=== PATIENT | female | born 1980 | race Caucasian/White ===

== ENCOUNTER 2023-01-05 15:04 | Emergency (ER) | payer MEDICAID ==
[~2023-01-05] VITALS: Ht 172.7 cm; Wt 123.4 kg
[2023-01-05 15:05] VITALS: BP 176/97
[2023-01-05 15:46] LABS: URINE HCG NEGATIVE (NEG)
[2023-01-05 15:47] LABS: CLARITY,URINE SLIGHTLY CLOUDY (Clear); COLOR,URINE YELLOW (Yellow); GLUCOSE, URINE NEGATIVE (Neg); KETONES,URINE NEGATIVE (Neg); LEUKOCYTE ESTERASE ,URINE TRACE (Neg); NITRITES, URINE NEGATIVE (Neg); OCCULT BLOOD,URINE LARGE (Neg); PROTEIN,URINE NEGATIVE (Neg); UROBILINOGEN,URINE 0.2 E.U/dL (0.2-1.0)
[2023-01-05 15:57] LABS: UA COLLECTION TYPE CLN CATCH MIDSTREAM
[2023-01-05 15:59] LABS: BACTERIA,URINE 2+ /HPF (Neg); MUCUS STRANDS FEW /LPF (Neg); SQUAMOUS EPITHELIAL CELL,UR MODERATE /LPF (FEW)
[2023-01-05 16:07] LABS: BASOPHILS # (AUTO) 0.1 X10'3 (0-0.2); BASOPHILS % (AUTO) 0.8 % (0-1); EOSINOPHILS # (AUTO) 0.2 X10'3 (0-0.9); EOSINOPHILS % (AUTO) 1.9 % (0-6); HEMATOCRIT 42.1 % (35.0-45.0); HEMOGLOBIN 14.6 g/dl (12.0-16.0); LYMPHOCYTES # (AUTO) 3.1 X10'3 (1.1-4.8); LYMPHOCYTES % (AUTO) 24.3 % (21-51); MEAN CORPUSCULAR HEMOGLOBIN 34.8 PG (27.0-31.0); MEAN CORPUSCULAR HGB CONC 34.8 g/dL (33.0-36.5); MEAN PLATELET VOLUME 7.6 FL (7.4-10.4); MONOCYTES % (AUTO) 7.7 % (2-12); NEUTROPHILS # (AUTO) 8.3 X10'3 (1.8-7.7); NEUTROPHILS % (AUTO) 65.3 % (42-75); PLATELET COUNT 372 X10'3 (140-440); RED BLOOD COUNT 4.21 X10'6 (4.20-5.60); RED CELL DISTRIBUTION WIDTH 12.5 % (11.5-14.5); WHITE BLOOD COUNT 12.6 X10'3 (4.5-11.0)
[2023-01-05 16:17] LABS: ALANINE AMINOTRANSFERASE 22 U/L (12-78); ALBUMIN 3.6 G/DL (3.4-5.0); ALBUMIN/GLOBULIN RATIO 0.9 (1.1-1.5); ALKALINE PHOSPHATASE 85 IU/L (46-116); ANION GAP 7 (8-16); ASPARTATE AMINO TRANSFERASE 15 U/L (10-37); BILIRUBIN,TOTAL 0.3 MG/DL (0.1-1.0); BLOOD UREA NITROGEN 8 MG/DL (7-18); BUN/CREATININE RATIO 8.5 (10.0-20.0); CALCIUM 8.9 MG/DL (8.5-10.1); CHLORIDE 104 MMOL/L (99-107); CREATININE 0.94 MG/DL (0.40-0.90); GLUCOSE 109 MG/DL (70-104); LIPASE 107 U/L (73-393); POTASSIUM 3.4 MMOL/L (3.5-5.1); SODIUM 137 MMOL/L (135-145); TOTAL CARBON DIOXIDE 25.6 MMOL/L (24-32); TOTAL PROTEIN 7.6 G/DL (6.4-8.2); eGFR 66 ML/MIN
[2023-01-05 16:40] LABS: MAGNESIUM 2.2 MG/DL (1.5-2.4)
== END 2023-01-05 18:09 | disposition home or self-care (01) ==
LOC: ER 15:05
DX: K46.9 Unspecified abdominal hernia without obstruction or gangrene (principal); Z88.6 Allergy status to analgesic agent; Z88.5 Allergy status to narcotic agent; Z79.899 Other long term (current) drug therapy
CPT/HCPCS: 36415; 74176; 80053; 81001; 81025; 83690; 83735; 85025; 87088; 99284

== ENCOUNTER 2023-02-25 11:05 | Emergency (ER) | payer MEDICAID ==
[~2023-02-25] VITALS: Ht 170.2 cm; Wt 135.2 kg
[2023-02-25 12:22] LABS: BASOPHILS # (AUTO) 0.1 X10'3 (0-0.2); BASOPHILS % (AUTO) 0.7 % (0-1); EOSINOPHILS # (AUTO) 0.8 X10'3 (0-0.9); EOSINOPHILS % (AUTO) 7.3 % (0-6); HEMATOCRIT 42.7 % (35.0-45.0); HEMOGLOBIN 14.5 g/dl (12.0-16.0); LYMPHOCYTES % (AUTO) 27.5 % (21-51); MEAN CORPUSCULAR HEMOGLOBIN 33.7 PG (27.0-31.0); MEAN CORPUSCULAR VOLUME 99.1 FL (78-98); MEAN PLATELET VOLUME 7.3 FL (7.4-10.4); MONOCYTES % (AUTO) 8.8 % (2-12); NEUTROPHILS # (AUTO) 6.1 X10'3 (1.8-7.7); NEUTROPHILS % (AUTO) 55.7 % (42-75); PLATELET COUNT 460 X10'3 (140-440); RED BLOOD COUNT 4.31 X10'6 (4.20-5.60); RED CELL DISTRIBUTION WIDTH 12.7 % (11.5-14.5)
[2023-02-25 12:28] LABS: CLARITY,URINE CLOUDY (Clear); COLOR,URINE YELLOW (Yellow); GLUCOSE, URINE NEGATIVE (Neg); KETONES,URINE NEGATIVE (Neg); LEUKOCYTE ESTERASE ,URINE NEGATIVE (Neg); NITRITES, URINE NEGATIVE (Neg); OCCULT BLOOD,URINE NEGATIVE (Neg); PH,URINE 5.5 (4.8-8.0); PROTEIN,URINE NEGATIVE (Neg); UROBILINOGEN,URINE 0.2 E.U/dL (0.2-1.0)
[2023-02-25 12:33] LABS: APTT 27 SECONDS (22-32)
[2023-02-25 12:34] LABS: URINE HCG NEGATIVE (NEG)
[2023-02-25 12:37] LABS: ALANINE AMINOTRANSFERASE 24 U/L (12-78); ALBUMIN 3.6 G/DL (3.4-5.0); ALBUMIN/GLOBULIN RATIO 0.9 (1.1-1.5); ALKALINE PHOSPHATASE 81 IU/L (46-116); ANION GAP 12 (8-16); ASPARTATE AMINO TRANSFERASE 15 U/L (10-37); BILIRUBIN,TOTAL 0.4 MG/DL (0.1-1.0); BLOOD UREA NITROGEN 9 MG/DL (7-18); BUN/CREATININE RATIO 10.6 (10.0-20.0); CALCIUM 9.4 MG/DL (8.5-10.1); CHLORIDE 103 MMOL/L (99-107); CREATININE 0.85 MG/DL (0.40-0.90); GLUCOSE 99 MG/DL (70-104); POTASSIUM 3.7 MMOL/L (3.5-5.1); SODIUM 140 MMOL/L (135-145); TOTAL CARBON DIOXIDE 25.2 MMOL/L (24-32); TOTAL PROTEIN 7.8 G/DL (6.4-8.2); eGFR 74 ML/MIN
[2023-02-25 12:41] LABS: UA COLLECTION TYPE CLN CATCH MIDSTREAM
[2023-02-25 12:42] LABS: MUCUS STRANDS MANY /LPF (Neg); SQUAMOUS EPITHELIAL CELL,UR MANY /LPF (FEW)
[2023-02-25 12:43] LABS: BACTERIA,URINE 1+ /HPF (Neg); RBC,URINE 0-2 /HPF (0-2); WBC,URINE 0-4 /HPF (0-4)
[2023-02-25] MEDS ORDERED: LIDOcaine 1% 30ml preserv. free vial ONE (13:30)
[2023-02-25 14:28] VITALS: BP 100/65
[2023-02-25 14:41] VITALS: BP 114/97
[2023-02-25 14:50] VITALS: BP 114/97
--- NOTE | 2023-02-25 15:00 | NUR ---
US ABD SEROMA DRAIN COMPLETED AT BEDSIDE, 1500ML REMOVED. ROLERATED WELL. RN NOTIFIED.
== END 2023-02-25 15:01 | disposition home or self-care (01) ==
LOC: ER 11:05
DX: L76.34 Postprocedural seroma of skin and subcutaneous tissue following other procedure (principal); Z98.890 Other specified postprocedural states; Z85.9 Personal history of malignant neoplasm, unspecified; Z72.89 Other problems related to lifestyle; Z88.8 Allergy status to other drugs, medicaments and biological substances
CPT/HCPCS: 10160; 36415; 80053; 81001; 81025; 85025; 85610; 85730; 99284; J3490

== ENCOUNTER 2023-03-11 10:27 | Day surgery (SDC) | payer MEDICAID ==
[2023-03-11] VITALS (8 sets, daily range): BP systolic 97–120; BP diastolic 57–82; PULSE 88–103; RESP 16; TEMP 97.9; O2SAT 95–98
[~2023-03-11] VITALS: Ht 172.7 cm; Wt 133.7 kg
[2023-03-11] MEDS ORDERED: LIDOcaine 1%/PF 5ML 10 MG/ML VIAL SQ ONE (10:35)
[2023-03-11] MEDS ORDERED: PANT40TA54 PO (10:53)
[2023-03-11] MEDS ORDERED: HYDR-3972 PO (10:53)
[2023-03-11] MEDS ORDERED: BUPR-72 PO (10:53)
[2023-03-11] MEDS ORDERED: BUPR200T27 (10:53)
[2023-03-11] MEDS ORDERED: METF-900 PO (10:53)
[2023-03-11] MEDS ORDERED: FLO44IN INH (10:53)
== END 2023-03-11 11:55 | disposition home or self-care (01) ==
LOC: SSTAY O 10:27
PROVIDERS: ATTEND Radiology Vascular & Interventional Radiology
DX: L76.34 Postprocedural seroma of skin and subcutaneous tissue following other procedure (principal); Z88.5 Allergy status to narcotic agent; Z88.8 Allergy status to other drugs, medicaments and biological substances; Z79.899 Other long term (current) drug therapy; Z91.09 Other allergy status, other than to drugs and biological substances; Y83.8 Other surgical procedures as the cause of abnormal reaction of the patient, or of later complication, without mention of misadventure at the time of the procedure
CPT/HCPCS: 10160; 76942

== ENCOUNTER 2023-03-19 12:04 | Day surgery (SDC) | payer MEDICAID ==
[~2023-03-19] VITALS: Ht 172.7 cm; Wt 134.2 kg
[~2023-03-19 12:04] MED LIST: BUPR-72 PO; BUPR200T27; FLO44IN INH; HYDR-3972 PO; METF-900 PO; PANT40TA54 PO
--- NOTE | 2023-03-19 14:15 | NUR ---
Pt declined to stay for procedure, Dr Rivera aware and saw patient prior to leaving. States she has things going on at home and will reschedule. Left before signing dc paperwork.
== END 2023-03-19 14:30 | disposition home or self-care (01) ==
LOC: SSTAY O 12:04
PROVIDERS: ATTEND Radiology Diagnostic Radiology
DX: L76.34 Postprocedural seroma of skin and subcutaneous tissue following other procedure (principal); Z53.8 Procedure and treatment not carried out for other reasons; Z88.5 Allergy status to narcotic agent; Z88.1 Allergy status to other antibiotic agents; Z88.8 Allergy status to other drugs, medicaments and biological substances; Z91.048 Other nonmedicinal substance allergy status; Y83.8 Other surgical procedures as the cause of abnormal reaction of the patient, or of later complication, without mention of misadventure at the time of the procedure; Y92.89 Other specified places as the place of occurrence of the external cause

== ENCOUNTER 2023-03-24 08:27 | Outpatient (CLI) | payer MEDICAID ==
[2023-03-24] MEDS ORDERED: iohexol 300mg/ml 100ml inj. ONE (08:41)
== END 2023-03-24 23:59 | disposition home or self-care (01) ==
LOC: RAD 08:27
PROVIDERS: ATTEND Surgery
DX: Z48.815 Encounter for surgical aftercare following surgery on the digestive system (principal); R91.8 Other nonspecific abnormal finding of lung field; N83.11 Corpus luteum cyst of right ovary; Z90.49 Acquired absence of other specified parts of digestive tract
CPT/HCPCS: 74177; J3490; Q9967

== ENCOUNTER 2023-03-27 06:36 | Day surgery (SDC) | payer MEDICAID ==
[~2023-03-27] VITALS: Ht 172.7 cm; Wt 134.1 kg
[2023-03-27 07:44] VITALS: BP 114/74; PULSE 92; RESP 16; TEMP 98.2; O2SAT 97
[2023-03-27 07:50] VITALS: RESP 16; O2SAT 98
[2023-03-27 09:08] VITALS: BP 135/86; PULSE 77; RESP 16; O2SAT 99
[2023-03-27 09:22] VITALS: BP 93/50; PULSE 85; RESP 16; O2SAT 99
[2023-03-27 09:26] VITALS: BP 119/80; PULSE 80; RESP 16; O2SAT 99
== END 2023-03-27 09:44 | disposition home or self-care (01) ==
LOC: SSTAY O 06:36
PROVIDERS: ATTEND Radiology Vascular & Interventional Radiology
DX: L76.34 Postprocedural seroma of skin and subcutaneous tissue following other procedure (principal); E11.9 Type 2 diabetes mellitus without complications; E66.01 Morbid (severe) obesity due to excess calories; Z68.42 Body mass index [BMI] 45.0-49.9, adult; F17.290 Nicotine dependence, other tobacco product, uncomplicated; Z90.49 Acquired absence of other specified parts of digestive tract; Z98.890 Other specified postprocedural states; Z90.721 Acquired absence of ovaries, unilateral; Z88.8 Allergy status to other drugs, medicaments and biological substances; Z88.5 Allergy status to narcotic agent; Z88.1 Allergy status to other antibiotic agents; Z91.048 Other nonmedicinal substance allergy status; Z79.899 Other long term (current) drug therapy; Z79.84 Long term (current) use of oral hypoglycemic drugs; Y83.8 Other surgical procedures as the cause of abnormal reaction of the patient, or of later complication, without mention of misadventure at the time of the procedure
CPT/HCPCS: 10160; 76942

== ENCOUNTER 2023-04-03 06:37 | Day surgery (SDC) | payer MEDICAID ==
[~2023-04-03] VITALS: Ht 172.7 cm; Wt 133.2 kg
[~2023-04-03 06:37] MED LIST changes: -HYDR-3972 PO
[2023-04-03 06:52] VITALS: BP 124/81; PULSE 91; RESP 16; TEMP 97.5; TEMP 98.3; O2SAT 99
[2023-04-03 08:40] VITALS: BP 118/80; PULSE 87; RESP 16; O2SAT 99
[2023-04-03 08:55] VITALS: BP 110/80; PULSE 82; RESP 16; O2SAT 99
== END 2023-04-03 09:10 | disposition home or self-care (01) ==
LOC: SSTAY O 06:37
PROVIDERS: ATTEND Radiology Vascular & Interventional Radiology
DX: L76.34 Postprocedural seroma of skin and subcutaneous tissue following other procedure (principal); E11.9 Type 2 diabetes mellitus without complications; Z88.8 Allergy status to other drugs, medicaments and biological substances; Z88.5 Allergy status to narcotic agent; Z88.1 Allergy status to other antibiotic agents; Z91.048 Other nonmedicinal substance allergy status; Z79.899 Other long term (current) drug therapy; F17.290 Nicotine dependence, other tobacco product, uncomplicated; Z90.49 Acquired absence of other specified parts of digestive tract; Z98.890 Other specified postprocedural states; Z90.721 Acquired absence of ovaries, unilateral; Z79.84 Long term (current) use of oral hypoglycemic drugs; Z72.89 Other problems related to lifestyle; Y83.8 Other surgical procedures as the cause of abnormal reaction of the patient, or of later complication, without mention of misadventure at the time of the procedure
CPT/HCPCS: 10160; 76942; A6449